=== PATIENT | female | born 1950 | race Caucasian/White ===

== ENCOUNTER 2019-01-19 12:13 | Day surgery (SDC) | payer MEDICARE, SELFPAY ==
[2019-01-19 12:39] VITALS: BP 119/52; PULSE 70; RESP 16; TEMP 36.9; O2SAT 95; BMI 32.6
[2019-01-19 13:11] LABS: Bedside Glucose 113 mg/dL (70-110)
--- NOTE | 2019-01-19 14:50 | RAD_ITS ---
STUDY: X-RAY - LUMBAR SPINE REASON FOR EXAM: Female, 68 years old. Spinal cord stimulator implant fluoroscopic guided TECHNIQUE: 7 view(s) of the lumbar spine were obtained. 1425.7 seconds of fluoroscopic time were utilized COMPARISON: None FINDINGS: 7 fluoroscopic guided images were obtained during spinal cord stimulator placement. For more complete information recommend correlation with surgical notes RAD/Lumbar Spine 2 or 3 Views IMPRESSION: Fluoroscopic guided dorsal stimulator placement Electronically Signed: Kevin Manzanares MD at 20:27 EDT , Service support ,
[2019-01-19] MEDS: Bacitracin 500 UNITS/GM PACKET (15:26)
[2019-01-19] MEDS: Bupivacaine 0.25% 30 ML Vial (16:22)
[2019-01-19 17:05] VITALS: BP 115/59; BP 119/52; PULSE 54; RESP 16; TEMP 36.1; O2SAT 93
[2019-01-19 17:10] VITALS: BP 122/63; PULSE 56; RESP 16; O2SAT 93
[2019-01-19 17:15] VITALS: BP 116/62; PULSE 56; RESP 16; O2SAT 90
[2019-01-19 17:20] VITALS: BP 119/52; BP 132/58; PULSE 56; RESP 16; TEMP 36.2; O2SAT 94
[2019-01-19 17:35] VITALS: BP 119/52
--- NOTE | 2019-01-19 17:59 | OP.PCM_ITS ---
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 Spinal cord stimulator thoracolumbar leads placement x2 #2 spinal cord stimulator Medtronic intellus generator placement #3 spinal cord stimulator generator pocket creation at the left gluteal region #4 spinal cord stimulator simple programming #5 fluoroscopic guidance Description of Surgical Findings:: PROCEDURES: 1. Spinal cord stimulator thoracolumbar leads placement x2 #2 spinal cord stimulator Medtronic intellus generator placement #3 spinal cord stimulator generator pocket creation at the left gluteal region #4 spinal cord stimulator simple programming #5 fluoroscopic guidance PREOPERATIVE DIAGNOSES: Lumbosacral radiculopathy, lumbosacral degenerative disc disease, lumbosacral spinal stenosis, postlaminectomy syndrome of the lumbar spine POSTOPERATIVE DIAGNOSES: Lumbosacral radiculopathy, lumbosacral degenerative disc disease, lumbosacral spinal stenosis, postlaminectomy syndrome of the lumbar spine ANESTHESIA: MAC COMPLICATIONS: None BLOOD LOSS: Minimal Implanted device: Spinal cord stimulator lead [id number] lot number [id number], lead #2 lot number [id number], Medtronic spinal cord stimulator generator intellus serial number [id number] PROCEDURE IN DETAIL: History and physical today was reviewed. Risks and benefits of procedure explained. The patient understood, agreed to procedure, informed consent was obtained. IV inserted per routine protocol. The patient was taken to the operating room, placed in the prone position with a pillow positioned underneath the abdomen. A 2 g of Ancef IV piggyback was infused per anesthesia. The lower back and left gluteal area was prepped and draped in a sterile fashion using iodine x3. The C-arm was brought in position for AP view at the L1-2 vertebral bodies under direct visualization fluoroscopy on a true AP view the L1-2 interlaminar space was identified skin and subcutaneous tissue and size approximately 10 cc of a mix of 2% lidocaine and 0.25% Marcaine using a 25- gauge regular needle followed by a 25-gauge 3-1/2 inch spinal needle towards the interlaminar space at L1-2, the skin and subcutaneous tissue were then anesthetized and using an 11-gauge blade was then taken down to the skin and subcutaneous tissue using a 14-gauge 3-1/2 inch Touhy needle provided by the [employer] kit the needle was passed through the skin towards the interlaminar space at L1-2 and a paramedian approach the needle was then advanced under direct visualization fluoroscopy towards the interlaminar space at L1-2 [id number] technique was then carried to air towards the interlaminar space at L3-4 once the tip of the needle was in the epidural space and loss of resistance was encountered to air and after confirmation of AP as well as oblique view of the spinal cord stimulator lead was then advanced under direct visualization fluoroscopy to be at the tip of the lead at T8 and the bottom of the lead around mid T10 after confirmation of AP as well as lateral view to confirm correct placement of the lead in the posterior compartment of the epidural space the previous procedure was then repeated to a level above at L2-3 interlaminar space the second lead was then inserted under direct visualization with fluoroscopy to be at the mid T8 and mid T10 area the leads were were then connected to the external neurostimulator and patient was then awakened to confirm satisfactory coverage of the painful area once satisfactory coverage was then achieved the stylette of each needle was then removed and the skin and subcutaneous tissue on to the left of the paramedian needles was then taken anesthetized with a total of 10 cc of the previous mixture of 0.25% Marcaine and 2% lidocaine using a 25-gauge regular needle the incision was then taken down through the skin and subcutaneous tissue towards the fascia making sure hemostasis was then maintained via cautery the spinal cord stimulator leads were then passed through the above incision and secured using the bitewing and sutured down with a 2-0 nylon to the fascia at that level the spinal cord stimulator leads were then tunneled via a tunneler provided by the [employer] kit towards the previously incised spinal cord stimulator battery at the left gl uteal region skin and subcutaneous tissue were anesthetized with approximately 10 cc of a mix of 2% lidocaine and 0.25% Marcaine using a 25 gauge regular needle, skin and subcutaneous tissue was then taken down with the 11-gauge blade hemostasis was maintained with Bovie and direct pressure the incision was then taken down to the fascia and the battery was then visualized the 2-0 nylon sutures that were the spinal cord stimulator leads the upper lead was then marked the new until spinal cord stimulator battery was then provided Via [employer] kit the battery was then reattached of the spinal cord stimulator make ensure that the top lead is attached to the top position from 0-7 electrodes and the bottom from 8-15 electrodes once impedance was then checked to be in the proper average number the intellus battery was then inserted into the pocket and impedance with when checked again the pocket was then inspected to confirm hemostasis in place, the intellus battery was then secured to the fascia using a 2-0 silk to the upper and lower eyes of the battery confirming an upward writing of the intellus facing posterior, once complete confirmation the battery was then placed in the position and the the mid paramedian and the gluteal incisions were then closed primarily through a 3-0 Vicryl in a interrupted fashion followed by a 4-0 Vicryl to the skin, hemostasis was then maintained during the procedure the skin was then covered with a Steri-Strips and bacitracin patient was then returned into the supine position in a stable condition and returned to recovery in a stable condition patient experienced no signs or symptoms of intrathecal or intravascular injection patient experienced no paresthesia the procedure was completed without any apparent difficulty any complication the pat ient appeared to tolerate well ESTIMATED BLOOD LOSS: Minimal less than 25 mL ASSESSMENT AND PLAN: This is a 68-year-old female with lumbosacral radiculopathy, lumbosacral degenerative disc disease lumbosacral spinal stenosis, postlaminectomy syndrome of the lumbar spine status post 1. Spinal cord stimulator thoracolumbar leads placement x2 #2 spinal cord stimulator Medtronic intellus generator placement #3 spinal cord stimulator generator pocket creation at the left gluteal region #4 spinal cord stimulator simple programming and fluoroscopic guidance patient will continue her current medications a prescription was provided to the patient for Keflex 500 mg 1 p.o. every 8 hours for 7 days postop instruction were given in writing to the patient as well as verbally and in writing to his patient will follow approximately 1 week for reevaluation
== END 2019-01-19 17:48 | disposition home or self-care (01) ==
LOC: SDC 12:19 → AC 12:19
PROVIDERS: Referring Provider Anesthesiology Pain Medicine; Visit Provider Anesthesiology Pain Medicine
PROC: (CPT 63685; principal; 2019-01-19 13:55)
DX: M96.1 Postlaminectomy syndrome, not elsewhere classified (principal); M51.17 Intervertebral disc disorders with radiculopathy, lumbosacral region; M48.07 Spinal stenosis, lumbosacral region; M46.96 Unspecified inflammatory spondylopathy, lumbar region; M48.061 Spinal stenosis, lumbar region without neurogenic claudication; M47.26 Other spondylosis with radiculopathy, lumbar region; M46.1 Sacroiliitis, not elsewhere classified; M51.16 Intervertebral disc disorders with radiculopathy, lumbar region; I11.0 Hypertensive heart disease with heart failure; I50.9 Heart failure, unspecified; E11.9 Type 2 diabetes mellitus without complications; J43.9 Emphysema, unspecified; G47.30 Sleep apnea, unspecified; E78.00 Pure hypercholesterolemia, unspecified; F41.9 Anxiety disorder, unspecified; F32.9 Major depressive disorder, single episode, unspecified; K58.9 Irritable bowel syndrome, unspecified; I48.91 Unspecified atrial fibrillation; G25.0 Essential tremor; G47.62 Sleep related leg cramps; K21.9 Gastro-esophageal reflux disease without esophagitis; Z87.19 Personal history of other diseases of the digestive system; Z98.1 Arthrodesis status; Z78.0 Asymptomatic menopausal state; Z79.82 Long term (current) use of aspirin; Z79.84 Long term (current) use of oral hypoglycemic drugs; Z79.891 Long term (current) use of opiate analgesic; Z79.899 Other long term (current) drug therapy; Z87.891 Personal history of nicotine dependence
CPT/HCPCS: 01992; 63650 ×2; 63685; 95971; 72100; 76000; 82962; C1778; J7120